=== PATIENT | male | born 1960 ===

== ENCOUNTER 2023-11-01 06:06 | Day surgery (SDC) | payer OTHER ==
[~2023-11-01 06:06] MED LIST: ALLERGY RELIE15.8 ML NASAL; AZELASTINE137 MCG/0.; CLARITIN10 M2 PO; MONTELUKAST SOD10 MG; PROAIR RESPICL90 MCG
[2023-11-01] MEDS ORDERED: METRONIDAZOLE/SODIUM CHLORIDE 500 MG/100 ML PIGGYBACK IV ONE ×2 (08:45)
[2023-11-01] MEDS ORDERED: HEMOSTATIC MATRIX 1 KIT KIT TOP ONE (08:45)
[2023-11-01] MEDS ORDERED: CEFTRIAXONE SODIUM 2,000 MG VIAL IV ONE (08:45)
[2023-11-01] MEDS ORDERED: LIDOCAINE HCL 1%/EPINEPHRINE 20ML VIAL IJ ONE (08:45)
[2023-11-01] MEDS ORDERED: BUPIVACAINE HCL 30 ML VIAL IJ ONE (08:45)
== END 2023-11-01 14:25 | disposition home or self-care (01) ==
LOC: CIR.AMB 06:06
PROVIDERS: ATTEND Colon & Rectal Surgery
DX: D12.9 Benign neoplasm of anus and anal canal (principal); K64.1 Second degree hemorrhoids; Z88.6 Allergy status to analgesic agent